=== PATIENT | male | born 1955 ===

== ENCOUNTER 2017-12-07 12:03 | Emergency (ER) | payer BC, MEDICARE ==
[2017-12-07 13:09] VITALS: BP 133/78
[2017-12-07] MEDS ORDERED: Ketorolac INJ* 30 MG/ML 1 ML VIAL IM ONE (13:23)
[2017-12-07] MEDS ORDERED: Acetaminophen TAB* 325 MG PO ONE (13:34)
--- NOTE | 2017-12-07 14:11 | UC ---
[place] Trauma HPI - HPI Summary HPI Summary: 62 yo male slipped and fell yesterday on steps Landed on his right lat chest hurts to take a deep breath no abd pain no SOB - History Of Current Complaint Chief Complaint: UCTrauma Stated Complaint: RIB PAIN S/P FALL YESTERDAY Time Seen by Provider: 12/07/17 13:18 Hx Obtained From: Patient Onset/Duration: Sudden Onset, Lasting Hours Onset Of Pain: Immediate Severity Initially: Severe Severity Currently: Severe Pain Intensity: 10 Pain Scale Used: 0-10 Numeric Mechanism Of Injury: Fall From A Standing Position Aggravating Factor(s): Movement, Deep Breathing, Cough Alleviating factor(s): Compression Associated Signs And Symptoms: Positive: Chest Pain - Allergies/Home Medications Allergies/Adverse Reactions: Allergies Allergy/AdvReac Type Severity Reaction Status Date / Time No Known Allergies Allergy Verified 12/07/17 12:57 Home Medications: Home Medications Celecoxib [Celebrex 50 MG CAP] 50 mg PO DAILY 12/07/17 [History Confirmed ] Losartan TAB* [Cozaar TAB*] 100 mg PO DAILY 12/07/17 [History Confirmed 12/07/17 ] Avon-3 Fatty Acids/Fish Oil [Fish Oil 1,000 mg Softgel] 12/07/17 [History] Simvastatin TAB(NF) [Zocor(NF)] 80 mg PO 1700 12/07/17 [History Confirmed ] glipiZIDE [Glipizide ER] 5 mg PO 12/07/17 [History] hydroCHLOROthiazide [Hydrochlorothiazide] 12/07/17 [History] metFORMIN* [Glucophage 850 MG TAB *] 850 mg PO 0800,1700 12/07/17 [History Confirmed 12/07/17] PMH/Surg Hx/FS Hx/Imm Hx Previously Healthy: Yes - Surgical History Surgical History: Yes Surgery Procedure, Year, and Place: LEFT knee replacement - Social History Alcohol Use: None Substance Use Type: None Smoking Status (MU): Never Smoked Tobacco Review of Systems Constitutional: Negative Skin: Negative Eyes: Negative ENT: Negative Respiratory: Negative Cardiovascular: Chest Pain - right lat Gastrointestinal: Negative Genitourinary: Negative Motor: Negative Neurovascular: Negative Musculoskeletal: Negative Neurological: Negative Psychological: Negative All Other Systems Reviewed And Are Negative: Yes Physical Exam Triage Information Reviewed: Yes Appearance: Well-Appearing, Well-Nourished Vital Signs: Initial Vital Signs Temp 98.1 F 12/07/17 13:00 Pulse 81 12/07/17 13:00 Resp 18 12/07/17 13:00 BP 133/78 12/07/17 13:00 Pulse Ox 99 12/07/17 13:00 Vital Signs Reviewed: Yes Eyes: Positive: Conjunctiva Clear Neck: Positive: Supple, Nontender, No Lymphadenopathy Respiratory: Positive: Lungs clear, Normal breath sounds, No respiratory distress, No accessory muscle use. Negative: Chest non-tender Cardiovascular: Positive: RRR, No Murmur Abdomen Description: Positive: Nontender, No Organomegaly Bowel Sounds: Positive: Present Musculoskeletal Exam: Normal Neurological Exam: Normal Neurological: Positive: Alert Psychological Exam: Normal Skin Exam: Normal Diagnostics - Radiology No standard instances Xray Interpretation: No Acute Changes Radiology Interpretation Completed By: Radiologist [place] Trauma Course/Dx - Differential Dx/Diagnosis Provider Diagnoses: right chest/rib contusion. ? occult rib fx Discharge - Discharge Plan Condition: Stable Disposition: HOME Prescriptions: HYDROcodone/ACETAMIN 5-325 MG* [[place] 5-325 TAB*] 1 tab PO Q4H PRN #15 tab MDD 4 PRN Reason: Pain Patient Education Materials: Rib Contusion (ED) Referrals: Samm Euceda PA [Primary Care Provider] - 5 Days Images Front/Back of Body, Lg (Barber): 1 - pain here
--- NOTE | 2017-12-07 14:26 | RAD ---
HISTORY: Right-sided pain, fall, injury COMPARISONS: None VIEWS: 7, Frontal view of the chest with frontal and oblique views of the right hemithorax. FINDINGS: There is no displaced rib fracture or pneumothorax. The visualized lungs are clear. IMPRESSION: THERE IS NO DISPLACED RIB FRACTURE OR PNEUMOTHORAX.
== END 2017-12-07 14:58 | disposition home or self-care (01) ==
LOC: UCCORT 12:03
DX: S20.211A Contusion of right front wall of thorax, initial encounter (principal); W10.9XXA Fall (on) (from) unspecified stairs and steps, initial encounter; Y93.9 Activity, unspecified; Y92.9 Unspecified place or not applicable
CPT/HCPCS: 99202; A9270-GY; G0463; J1885